=== PATIENT | female | born 1985 | race African-American/Black ===

== ENCOUNTER 2019-04-09 11:38 | Inpatient (IN) | payer MEDICAID, OTHER ==
[~2019-04-09] VITALS: Ht 175.3 cm; Wt 129.3 kg
[2019-04-09] MEDS ORDERED: SODIUM CHLORIDE 0.9% 1,000 ML IV ONE (12:13)
[2019-04-09] MEDS ORDERED: MORPHINE SULFATE 4 MG/ML CPJ (NOT FOR IM USE) IV STA ×2 (12:13→15:15)
[2019-04-09] MEDS ORDERED: ONDANSETRON HCL 4MG/2ML INJ IV STA ×2 (12:13→15:15)
[2019-04-09] MEDS ORDERED: FAMOTIDINE 20MG/2ML VIAL IV STA (12:13)
[2019-04-09 12:27] LABS: BASOPHILS % 0.8 % (0.0-2.0); EOSINOPHILS % 1.7 % (0.0-5.0); HEMATOCRIT. 37.1 % (36.0-48.0); HEMOGLOBIN. 12.2 g/dL (12.0-16.0); LYMPHOCYTES % 13.2 % (20.0-50.0); MEAN CORPUSCULAR HEMOGLOBIN 30.2 pg (28.0-32.0); MEAN CORPUSCULAR VOLUME 91.8 fL (81.0-99.0); MEAN PLATELET VOLUME 7.4 fl (7.4-10.4); NEUTROPHILS % 78.3 % (40.0-76.0); PLATELET 293 x1000/uL (130-400); RED BLOOD CELL COUNT 4.04 mill/uL (4.2-5.4); RED CELL DISTRIBUTION WIDTH 15.7 % (11.6-14.6)
[2019-04-09 12:33] LABS: INR 0.9; PROTHROMBIN TIME 9.9 sec (9.6-11.0)
[2019-04-09 12:36] LABS: CHLORIDE 108 mEq/L (98-107)
[2019-04-09 12:39] LABS: HCG SCREEN NEGATIVE
[2019-04-09] MEDS ORDERED: HYDRALAZINE 20MG/ML VIAL IV ONE ×2 (13:45→15:15)
[2019-04-09 14:15] LABS: CLARITY URINE TURBID (CLEAR); COLOR URINE RED (YELLOW); KETONES URINE NEGATIVE (NEGATIVE); LEUKOCYTE ESTERASE URINE 2+ (NEGATIVE); NITRITE URINE POSITIVE (NEGATIVE); OCCULT BLOOD URINE 3+ (NEGATIVE); PROTEIN URINE 2+ (NEGATIVE); SPECIFIC GRAVITY URINE 1.029 (1.005-1.030); UROBILINOGEN URINE 0.2 E.U./dL (0.2-1.0)
[2019-04-09] MEDS ORDERED: CLONIDINE 0.1MG TABLET PO ONE (14:15)
[2019-04-09] MEDS ORDERED: CEFTRIAXONE 1 G PREMIX 50 ML IV ONE (14:30)
[2019-04-09] MEDS ORDERED: IOHEXOL-300 100 ML BOTTLE ONE (14:38)
[2019-04-09] MEDS: SODIUM CHLORIDE 0.45% 1,000 ML IV SCH (15:57)
[2019-04-09] MEDS ORDERED: ACETAMINOPHEN 325MG TABLET PO PRN (16:00)
[2019-04-09] MEDS ORDERED: HYDRALAZINE 20MG/ML VIAL IV PRN (16:00)
[2019-04-09] MEDS ORDERED: MAGNESIUM/ALUMINUM HYDROXIDE/SIMETHICONE 30ML UDC PO PRN (16:00)
[2019-04-09] MEDS ORDERED: IPRATROPIUM/ALBUTEROL 0.5-3(2.5)MG/3ML NEB HHN PRN (16:00)
[2019-04-09] MEDS ORDERED: ONDANSETRON HCL 4MG/2ML INJ IV PRN (16:00)
[2019-04-09] MEDS ORDERED: DOCUSATE SODIUM 100MG CAPSULE PO PRN (16:00)
[2019-04-09] MEDS ORDERED: CLONIDINE 0.1MG TABLET PO PRN (16:00)
[2019-04-09] MEDS ORDERED: HYDROCODONE/ACETAMINOPHEN 10/325MG TABLET PO PRN (16:00)
[2019-04-09] MEDS ORDERED: GUAIFENESIN 200MG/10ML SUGAR FREE UDC PO PRN (16:00)
[2019-04-09] MEDS ORDERED: MORPHINE SULFATE 2 MG/ML CPJ (NOT FOR IM USE) IV PRN (16:00)
[2019-04-09] MEDS ORDERED: DIPHENHYDRAMINE 50MG/ML VIAL IV PRN (16:00)
[2019-04-09] MEDS ORDERED: LORAZEPAM 2MG/ML CPJ IV PRN (16:00)
[2019-04-09] MEDS ORDERED: PIPERACILLIN/TAZ 3.375G PREMIX 50 ML IV SCH (16:45)
[2019-04-09] MEDS ORDERED: NICARDIPINE 20MG/200ML PREMIX 200 ML IV PRN (17:15)
[2019-04-09] MEDS ORDERED: NICARDIPINE 40MG/200ML PREMIX 200 ML IV PRN (18:45)
[2019-04-09] MEDS ORDERED: ENOXAPARIN 40MG/0.4ML SYR SUBCUT SCH (21:00)
[2019-04-09 22:30] VITALS: BP 134/75
[2019-04-09 22:45] VITALS: BP 138/75
[2019-04-09 23:45] VITALS: BP 146/84
[2019-04-09 23:46] VITALS: BP 142/81
[2019-04-10] VITALS (28 sets, daily range): BP systolic 103–155; BP diastolic 57–91
[2019-04-10 00:59] LABS: CREATINE KINASE 79 IU/L (26-192)
[2019-04-10 01:00] LABS: CREATINE KINASE MB FRACTION < 1.0 ng/mL (0.5-3.6)
[2019-04-10] MEDS: PIPERACILLIN/TAZOBACTAM 3.375 G in DEXT 5% WATER 100 ML IV SCH ×2 (01:46→09:24)
[2019-04-10] MEDS: SODIUM CHLORIDE 0.45% 1,000 ML IV SCH (05:17)
[2019-04-10] MEDS ORDERED: SODIUM CHLORIDE 0.9% INJ 3ML FLUSH IVF SCH (06:00)
[2019-04-10 06:13] LABS: BASOPHILS % 0.7 % (0.0-2.0); EOSINOPHILS % 1.9 % (0.0-5.0); HEMATOCRIT. 33.7 % (36.0-48.0); HEMOGLOBIN. 11.1 g/dL (12.0-16.0); LYMPHOCYTES % 17.5 % (20.0-50.0); MEAN CORPUSCULAR HEMOGLOBIN 30.1 pg (28.0-32.0); MEAN CORPUSCULAR VOLUME 91.3 fL (81.0-99.0); MEAN PLATELET VOLUME 7.4 fl (7.4-10.4); NEUTROPHILS % 71.9 % (40.0-76.0); PLATELET 268 x1000/uL (130-400); RED BLOOD CELL COUNT 3.69 mill/uL (4.2-5.4)
[2019-04-10 06:20] LABS: CHLORIDE 110 mEq/L (98-107)
[2019-04-10 06:32] LABS: CREATINE KINASE 66 IU/L (26-192)
[2019-04-10 06:35] LABS: CREATINE KINASE MB FRACTION 1.4 ng/mL (0.5-3.6)
[2019-04-10] MEDS ORDERED: KETOROLAC 30MG/ML VIAL IV SCH (09:00)
[2019-04-10] MEDS ORDERED: ENOXAPARIN 30MG/0.3ML SYR SUBCUT SCH (09:00)
== END 2019-04-10 12:00 | disposition home or self-care (01) | DRG 463 ==
LOC: ER 11:38 → CVICU 14:24 → EDBEDREQSVC 16:39 → ENRESERV 21:50 → CVICU 04-10 08:54
PROVIDERS: ADMIT Internal Medicine; ATTEND Internal Medicine
DX: N13.6 Pyonephrosis (principal); R65.10 Systemic inflammatory response syndrome (SIRS) of non-infectious origin without acute organ dysfunction; E86.0 Dehydration; F17.200 Nicotine dependence, unspecified, uncomplicated; Z53.29 Procedure and treatment not carried out because of patient's decision for other reasons; I10 Essential (primary) hypertension; J45.909 Unspecified asthma, uncomplicated; Z87.442 Personal history of urinary calculi
CPT/HCPCS: 36415; 74177; 80053; 81003; 82550; 82553; 83605; 84484; 84703; 85025; 93970; 99285; J0360; J0696; J1650; J1885; J2060; J2270; J2405; J2543; J3490; J7030; J7060; Q9967